=== PATIENT | male | born 1980 | race Caucasian/White ===

== ENCOUNTER 2016-09-14 08:49 | Emergency (ER) | payer BC ==
[~2016-09-14] VITALS: Ht 182.9 cm; Wt 90.9 kg
[2016-09-14] MEDS ORDERED: PROPECIA1 MG PO (08:54)
[2016-09-14 09:28] LABS: BASO # 0.1 (0.0-0.2); BASO % 1.2 % (0.0-2.0); EOS # 0.9 (0.0-0.7); EOS % 10.7 % (0-4.0); GRAN # 4.5 (1.4-6.5); GRAN % 54.5 % (42.2-75.2); HEMATOCRIT 45.9 % (42.0-52.0); LYMPH # 1.9 (1.2-3.4); LYMPH % 23.1 % (20.0-51.0); MEAN CELL VOLUME 88 fl (80.0-100.0); MEAN CORPUSCULAR HEMOGLOBIN 31 pg (27.0-31.0); MEAN CORPUSCULAR HGB CONC 35 g/dl (33.0-37.0); MEAN PLATELET VOLUME 9.8 fl (7.4-10.4); MONO # 0.8 (0.1-0.6); PLATELET COUNT 283 K/mm3 (130-400); RED BLOOD COUNT 5.24 M/mm3 (4.20-5.60); REDCELL DISTRIBUTION WIDTH-CV 12.5 % (11.5-14.5); WHITE BLOOD COUNT 8.2 K/mm3 (4.8-10.8)
[2016-09-14 09:36] LABS: ADJUSTED CALCIUM 8.7 mg/dL (8.4-10.2); ALANINE AMINOTRANSFERASE 35 U/L (21-72); ALBUMIN 4.6 gm/dL (3.5-5.0); ALKALINE PHOSPHATASE 88 U/L (50-136); ANION GAP 13 mmol/L (7-16); BILIRUBIN,TOTAL 1.1 mg/dL (0.0-1.0); BLOOD UREA NITROGEN 15 mg/dL (9-20); CALCIUM 9.2 mg/dL (8.4-10.2); CARBON DIOXIDE 25 mmol/L (22-30); CHLORIDE 103 mmol/L (98-107); CREATININE, serum 0.87 mg/dL (0.66-1.25); GLUCOSE 88 mg/dL (74-106); POTASSIUM 4.1 mmol/L (3.4-5.0); SODIUM 141 mmol/L (137-145); TOTAL PROTEIN 7.9 gm/dL (6.4-8.2)
[2016-09-14 09:57] LABS: TROPONIN-I < 0.012 ng/mL (0.000-0.034)
[2016-09-14 11:42] VITALS: BP 124/87; PULSE 54
== END 2016-09-14 11:22 | disposition home or self-care (01) ==
LOC: COL.ER 08:49
PROVIDERS: Nurse Practitioner
DX: R07.89 Other chest pain (principal); Z98.890 Other specified postprocedural states; Z82.49 Family history of ischemic heart disease and other diseases of the circulatory system
CPT/HCPCS: J1885

== ENCOUNTER 2016-11-13 17:25 | Emergency (ER) | payer BC ==
[~2016-11-13] VITALS: Ht 180.3 cm; Wt 90.9 kg
[~2016-11-13 17:25] MED LIST: PROPECIA1 MG PO
[2016-11-13 17:28] VITALS: BP 125/88; TEMP 97.8
[2016-11-13] MEDS ORDERED: PERCOCET 325 MG1 TA2 PO (19:20)
[2016-11-13 19:52] VITALS: PULSE 62
== END 2016-11-13 19:52 | disposition home or self-care (01) ==
LOC: COL.ER 17:25
DX: T20.26XA Burn of second degree of forehead and cheek, initial encounter (principal); T23.261A Burn of second degree of back of right hand, initial encounter; X02.0XXA Exposure to flames in controlled fire in building or structure, initial encounter; Z23 Encounter for immunization
CPT/HCPCS: J1170; J1885

== ENCOUNTER → 2018-11-17 | Outpatient (CLI) | payer BC ==
[~2018-11-17] MED LIST changes: +PERCOCET 325 MG1 TA2 PO
== END ==
LOC: COL.RAD 10:21
DX: R43.0 Anosmia (principal)
CPT/HCPCS: A9585